=== PATIENT | female | born 1960 | race Caucasian/White ===

== ENCOUNTER 2023-07-23 01:53 | Inpatient (IN) | payer MEDICAID, OTHER, SELFPAY ==
--- NOTE | ~2023-07-23 | US_ITS ---
EXAMINATION: US ABDOMEN COMPLETE CLINICAL INFORMATION: Severe hypertriglyceridemia. Right upper quadrant pain. COMPARISON: None available. TECHNIQUE: Real-time imaging of the abdominal viscera. FINDINGS: PANCREAS: Obscured. ABDOMINAL AORTA: Obscured. INFERIOR VENA CAVA: Obscured. LIVER: The liver is normal in size. The liver contour is normal. Parenchymal echogenicity is normal. No focal hepatic lesion. There is no intrahepatic biliary duct dilatation seen. GALLBLADDER: Contracted. COMMON BILE DUCT: Normal in caliber measuring 0.3 cm in diameter. RIGHT KIDNEY: No hydronephrosis. No renal calculi or focal parenchymal lesions. The kidney measures 11.1 cm in maximum dimension. LEFT KIDNEY: No hydronephrosis. No renal calculi or focal parenchymal lesions. The kidney measures 10.7 cm in maximum dimension. Upper pole cyst measures 3.0 x 2.9 x 3.1 cm. No further imaging follow-up is needed. SPLEEN: Suboptimally seen. The spleen measures 9.9 cm in maximum dimension. FREE FLUID: None. US/US abdomen complete IMPRESSION: Limited study. No acute abnormality.
[2023-07-23 04:31] VITALS: BP 160/86; PULSE 80; RESP 17; TEMP 36.4; O2SAT 94
[2023-07-23 04:32] VITALS: BMI 25.8
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
--- NOTE | 2023-07-23 11:15 | PC.NURSE ---
Attempted to complete med rec for pt who reports she is from [place]. Pt unable to provide pharmacy information. Pt reports she takes amlodipine PO 10mg tab daily, levothyrozine PO 75 mcg daily, and lorazepam PO 1mg BID PRN. This info was confirmed with dischrge paperwork for [facility]. Pt also reports she is allergic to all antidepressants, all antipsychotics, all SSRIs, Valproic Aci and Risperidone. Pt reports they cause my finger nails to fall off . MD notified via [employer].
[2023-07-23] MEDS: Acetaminophen 325 MG TABLET 650 MG PO ×2 (13:21→21:27)
--- NOTE | 2023-07-23 14:35 | HO.PM.IMCN ---
History of Present Illness Data of Consult Service Date: 07/23/23 Primary Care Provider: Unknown Physician HPI Reason for consult: Admission H&P Pt is a 63-year-old female with a PMH significant for?HTN and hypothyroidism who is admitted to M5 psychiatry unit for delusional and disorganized behavior. Patient was apparently at [facility] and began to act manic and was sectioned. Initially presented to [facility] severely delusional of both grandiosity and persecution. Medical consult for admission H&P. ?Patient presents has manic at time of interview and examination. Continues to have delusions of grandiosity, including having been asked to attend numerous medical conferences sponsored by the [employer] in [facility] due to her medical knowledge and unique medical conditions and physiology. Patient does not speak logically or provide accurate HPI. Patient is not directable and will not cooperate with examination. Patient is mildly hypertensive at 160/86, otherwise vitals WNL. Review of Systems Review of Systems: Unable to obtain due to patient's mentation [facility] Medical History Hypothyroid Hypertension DVT (deep venous thrombosis) Renal cyst Social History Household Members: None Housing: Homeless Patient Tobacco Use Status: Current everyday Tobacco user Tobacco use type: Cigarette Smoked in Last 30 Days: Yes e-Cigarette/Vaping Use: Never Used Patient Interested in Nicotine Replacement: Yes Patient Given Instructions on How to Stop Smoking: Yes Date Education Initiated: 07/23/23 Second Hand Smoke Exposure: No Use of substances other than those prescribed or required for medical reasons: No Currently Displaying Signs/Symptoms of Drug Intoxication Withdrawal: No Any prior treatment program specific to substance use: No Have you been hit, kicked, punched, or otherwise hurt by someone within the past year? If so, by whom?: No Do you feel safe in your current relationship?: No Current Relationship Is there a partner from a previous relationship who is making you feel unsafe now?: No Are you made to feel afraid or neglected: No Yazidism Healthcare Practices: Orthodox Advance Directives: No Advance Directives Information Provided: No Do you have thoughts of harming others: None Do you have a plan to hurt others: No Plan Recently lost weight without trying: No Eating poorly because of decreased appetite: No Nutrition Risks: No Nutritional Risk Patient : No : No Poor oral hygiene: No Meds Allergies Allergy/AdvReac Type Severity Reaction Status Date / Time Unable to Assess Allergy Verified 07/23/23 04:50 Active Medications: Current Medications Acetaminophen (Acetaminophen 325 Mg Tablet) 650 mg PO Q6H PRN PRN Reason: Headache/Pain Mild Scale (1-3) Last Admin: 07/23/23 13:21 Dose: 650 mg Al Hydroxide/Mg Hydroxide (Magnesium Hydrox/Alum Hydrox 30 Ml Oral.Susp) 30 ml PO Q6H PRN PRN Reason: Heartburn/Nausea Hydroxyzine HCl (Hydroxyzine Hcl 25 Mg Tablet) 25 mg PO Q6H PRN PRN Reason: Anxiety Magnesium Hydroxide (Milk Of Magnesia 30 Ml Oral.Susp) 30 ml PO DAILY PRN PRN Reason: Constipation Nicotine Polacrilex (Nicotine Polacrilex 2 Mg Gum) 2 mg BUCCAL Q2H PRN PRN Reason: Nicotine Cravings Quetiapine Fumarate (Quetiapine Fumarate 50 Mg Tablet) 50 mg PO Q4H PRN PRN Reason: agitation Trazodone HCl (Trazodone Hcl 50 Mg Tablet) 50 mg PO BEDTIME MRX1 PRN PRN Reason: Insomnia Home Medications Medication Instructions Recorded Confirmed Last Taken Type gabapentin 07/23/23 Unknown History quetiapine 07/23/23 Unknown History Physical Exam Vital Signs and Narrative: Vital Signs: Last Vital Signs Temp 97.6 F 07/23/23 04:31 Pulse 80 07/23/23 04:31 Resp 17 07/23/23 04:31 BP 160/86 H 07/23/23 04:31 Pulse Ox 94 07/23/23 04:31 O2 Del Method Room Air 07/23/23 04:31 BMI result Body Mass Index 25.8 Unable to obtain due to patient's mentation. Patient presents as manic and incapable of redirection. Assessment and Plan (1) Medical clearance for psychiatric admission: Status: Acute Plan Pt is a 63-year-old female with a PMH significant for?HTN and hypothyroidism who is admitted to psychiatry unit for delusional and disorganized behavior. Patient was apparently at [facility] and began to act manic and was sectioned. Initially presented to [facility] severely delusional of both grandiosity and persecution. Medical consult for admission H&P. ?Patient presents has manic at time of interview and examination. Mood disorder Plan as per Psychiatry HTN Continue amlodipine once verified by Pharmacy Hypothyroidism Check TSH with reflex T4 Continue levothyroxine once verified Thank you for allowing us to participate in the care of this patient. Signing off at this time. Please re-consult if any acute complaints or issues arise.
[2023-07-23 17:15] VITALS: BP 168/93; PULSE 117; TEMP 36.2; O2SAT 97
[2023-07-23] MEDS: amLODIPine Besylate 10 MG TABLET PO (17:18)
[2023-07-23] MEDS: Levothyroxine Sodium 75 MCG TABLET PO (17:18)
[2023-07-23] MEDS: Nicotine Polacrilex 2 MG GUM BUCCAL (18:48)
[2023-07-23] MEDS: Magnesium Hydrox/Alum Hydrox 30 ML ORAL.SUSP PO (21:27)
[2023-07-23 22:30] VITALS: BP 152/90; PULSE 95; TEMP 36.2; O2SAT 98
[2023-07-24] MEDS: Nicotine Polacrilex 2 MG GUM BUCCAL ×3 (03:08→22:06)
[2023-07-24] MEDS: QUEtiapine Fumarate 50 MG TABLET PO (03:08)
[2023-07-24] MEDS: Milk of Magnesia 30 ML ORAL.SUSP PO (03:08)
[2023-07-24] MEDS: Acetaminophen 325 MG TABLET 650 MG PO ×3 (03:15→19:00)
[2023-07-24 08:19] LABS: Glucose, Whole Blood 105 mg/dL (60-115)
[2023-07-24] MEDS: Levothyroxine Sodium 75 MCG TABLET PO (08:24)
[2023-07-24] MEDS: Folic Acid 1 MG TABLET PO (08:24)
[2023-07-24] MEDS: amLODIPine Besylate 10 MG TABLET PO (08:24)
[2023-07-24 08:35] VITALS: BP 142/77; PULSE 78; RESP 16; TEMP 36.1; O2SAT 99
[2023-07-24 08:43] LABS: MANUAL DIFF FLAG NO
[2023-07-24 08:50] LABS: Basophils Absolute Auto 0.1 X10*3/uL (0.0-0.2); Basophils Percent Auto 0.9 % (0-2); Eosinophils Absolute Auto 0.2 X10*3/uL (0.0-0.4); Eosinophils Percent Auto 2.7 % (0-4); Hematocrit 38.1 % (37.0-47.0); Hemoglobin 12.6 g/dl (12.0-16.0); Imm Gran Abs Auto 0.05 X10*3/uL (0.00-0.03); Imm Gran Pct Auto 0.6 % (0.0-0.4); Lymphocytes Absolute Auto 1.5 X10*3/uL (1.2-4.9); Lymphocytes Percent Auto 18.8 % (20-40); Mean Corpuscular HGB Conc 33.1 g/dl (31.0-35.0); Mean Corpuscular Hemoglobin 30.1 pg (27.0-33.0); Mean Corpuscular Volume 90.9 fL (80.0-98.0); Mean Platelet Volume 10.1 fL (9.4-12.3); Monocytes Absolute Auto 0.7 X10*3/uL (0.1-1.2); Monocytes Percent Auto 8.9 % (2-11); Neutrophils Absolute Auto 5.3 x10*3/uL (2.0-8.3); Neutrophils Percent Auto 68.1 % (45-73); Platelet Count 292 X10*3/uL (160-400); Red Blood Count 4.19 X10*6/uL (4.20-5.50); Red Cell Distribution Width 13.5 % (11.0-16.0); White Blood Count 7.7 X10*3/uL (4.8-10.8)
[2023-07-24 09:08] LABS: Estimated Average Glucose 120 mg/dL; Hemoglobin A1c % 5.8 % (<6.0)
[2023-07-24 09:17] LABS: Cholesterol 400 mg/dL (<200); HDL Cholesterol 48 mg/dL (>40); Triglycerides 1090 mg/dL (<150)
[2023-07-24 09:32] LABS: Free T4 (Free Thyroxine) 0.86 ng/dL (0.71-1.85); Thyroid Stimulating Hormone 5.86 uIU/mL (0.32-4.0)
[2023-07-24 09:45] LABS: Folate 11.4 ng/mL (> or = 4.0); Vitamin B12 1816 pg/mL (200-900)
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
[2023-07-24 17:04] VITALS: BP 135/76; PULSE 93; RESP 20; TEMP 36.5; O2SAT 98
[2023-07-24] MEDS: clonazePAM 0.5 MG TABLET PO (18:52)
[2023-07-24] MEDS: Magnesium Hydrox/Alum Hydrox 30 ML ORAL.SUSP PO (22:06)
[2023-07-25] MEDS: Nicotine Polacrilex 2 MG GUM BUCCAL ×2 (03:44→21:27)
[2023-07-25] MEDS: Acetaminophen 325 MG TABLET 650 MG PO (03:44)
[2023-07-25] MEDS: QUEtiapine Fumarate 50 MG TABLET PO (03:44)
[2023-07-25] MEDS: Levothyroxine Sodium 75 MCG TABLET PO (06:45)
[2023-07-25 08:10] VITALS: BP 159/85; PULSE 97; RESP 18; TEMP 36.3; O2SAT 99
[2023-07-25] MEDS: amLODIPine Besylate 10 MG TABLET PO (08:17)
[2023-07-25] MEDS: Folic Acid 1 MG TABLET PO (08:17)
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
[2023-07-25] MEDS: Multivitamin TABLET 1 TAB PO (10:05)
[2023-07-25] MEDS: Cholecalciferol (Vitamin D3) 25 MCG TABLET 50 MCG PO (10:05)
[2023-07-25] MEDS: Lidocaine 4 % Patch ADH..PATCH 1 PATCH TRANSDERMA (10:06)
[2023-07-25] MEDS: Acetaminophen 325 MG TABLET 975 MG PO ×2 (10:11→21:08)
[2023-07-25] MEDS: clonazePAM 0.5 MG TABLET PO ×2 (15:20→21:05)
[2023-07-25 17:00] VITALS: BP 148/76; PULSE 98; TEMP 36.3; O2SAT 98
[2023-07-25] MEDS: Gabapentin 100 MG CAPSULE PO (21:05)
[2023-07-26] MEDS: Levothyroxine Sodium 75 MCG TABLET PO (06:19)
[2023-07-26 08:00] VITALS: BP 158/86; PULSE 82; RESP 16; TEMP 36.4; O2SAT 98
[2023-07-26] MEDS: Ascorbic Acid 250 MG TABLET PO (08:15)
[2023-07-26] MEDS: Folic Acid 1 MG TABLET PO (08:15)
[2023-07-26] MEDS: amLODIPine Besylate 10 MG TABLET PO (08:15)
[2023-07-26] MEDS: Acetaminophen 325 MG TABLET 975 MG PO ×3 (08:16→22:00)
[2023-07-26] MEDS: Cholecalciferol (Vitamin D3) 25 MCG TABLET 50 MCG PO (08:17)
[2023-07-26] MEDS: Nicotine Polacrilex Lozenge 2 MG LOZENGE BUCCAL ×2 (08:33→13:21)
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
[2023-07-26 10:06] LABS: Glucose, Whole Blood 270 mg/dL (60-115)
[2023-07-26] MEDS: clonazePAM 0.5 MG TABLET PO ×2 (15:03→21:56)
[2023-07-26] MEDS: Lidocaine 4 % Patch ADH..PATCH 1 PATCH TRANSDERMA (15:04)
[2023-07-26 16:58] LABS: Glucose, Whole Blood 189 mg/dL (60-115)
[2023-07-26] MEDS: Gabapentin 100 MG CAPSULE PO (21:56)
[2023-07-26 22:33] LABS: Glucose, Whole Blood 132 mg/dL (60-115)
[2023-07-27] MEDS: Magnesium Hydrox/Alum Hydrox 30 ML ORAL.SUSP PO ×2 (03:22→20:19)
[2023-07-27] MEDS: QUEtiapine Fumarate 50 MG TABLET PO ×2 (03:25→20:18)
[2023-07-27] MEDS: Levothyroxine Sodium 75 MCG TABLET PO (05:33)
[2023-07-27 08:15] VITALS: BP 139/78; PULSE 80; RESP 18; TEMP 36.1; O2SAT 96
[2023-07-27 08:18] LABS: Glucose, Whole Blood 118 mg/dL (60-115)
[2023-07-27] MEDS: Nicotine Polacrilex Lozenge 2 MG LOZENGE BUCCAL ×2 (08:22→20:11)
[2023-07-27] MEDS: Acetaminophen 325 MG TABLET 975 MG PO ×2 (08:22→20:16)
[2023-07-27] MEDS: Folic Acid 1 MG TABLET PO (08:23)
[2023-07-27] MEDS: Ascorbic Acid 250 MG TABLET PO (08:23)
[2023-07-27] MEDS: Cholecalciferol (Vitamin D3) 25 MCG TABLET 50 MCG PO (08:23)
[2023-07-27] MEDS: amLODIPine Besylate 10 MG TABLET PO (08:23)
[2023-07-27 08:35] LABS: Cholesterol 519 mg/dL (<200); HDL Cholesterol 47 mg/dL (>40); Triglycerides 2566 mg/dL (<150)
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
[2023-07-27 12:05] LABS: Alanine Aminotransferase 22 U/L (0-31); Alkaline Phosphatase 113 U/L (39-117); Aspartate Amino Transferase 18 U/L (5-31); Bilirubin Direct < 0.2 mg/dL (0.0-0.5); Bilirubin Total 0.2 mg/dL (0.0-1.0); Total Protein 6.3 g/dL (6.5-8.0)
--- NOTE | 2023-07-27 12:19 | PM.EVENT ---
Event Note Date of Service: 07/27/23 Event Note: 63-year-old female with schizoaffective disorder, hypothyroidism, hypertension, history DVT admitted to Psychiatry with oscar and psychosis with consult of severe hypertriglyceridemia. Triglyceride levels on 07/24 >1000, repeated today fasting and triglycerides >2500. Total cholesterol 519. LFTs wnl. 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 Has never seen endocrinology or Time Spent With Patient Time: Total time managing care of this patient today ____ minutes.
[2023-07-27 12:34] LABS: Glucose, Whole Blood 141 mg/dL (60-115)
--- NOTE | 2023-07-27 12:57 | P.PNIM_ITS ---
Subjective Subjective Date of Service: 07/27/23 Interval History: 63-year-old female with schizoaffective disorder, hypothyroidism, hypertension, history DVT admitted to Psychiatry with oscar and psychosis with consult of severe hypertriglyceridemia. Triglyceride levels on 07/24 >1000, repeated today fasting and triglycerides >2500. Total cholesterol 519. LFTs wnl. 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 Has never seen endocrinology or cardiology in the past. She states she has had a u/s of the abd/pelvis performed in the past with what sounds like a renal cyst but cannot confirm given lack of records and questionable history. Of note, she also had UA suggestive of infection at [facility]. Urine culture resulted with 10k-100k Staph aureus and 10k-100k hemolytic strep viridens. Sensitive to cefuroxine. Pt denies dysuria, states she always has hematuria . Denies urinary frequency or urgency. Denies abd pain, flank pain, n/v. However, again, unclear as to how accurate this history is as she is redirected and then quickly returns to disorganized thoughts. Review of Systems Unclear if history provided is credible Review of Systems: Yes Unobtainable due to mental status Physical Exam 2 Vital Signs: Vital Signs: Last Vital Signs Temp 96.9 F 07/27/23 08:15 Pulse 80 07/27/23 08:15 Resp 18 07/27/23 08:15 BP 139/78 07/27/23 08:15 Pulse Ox 96 07/27/23 08:15 O2 Del Method Room Air 07/27/23 08:15 BMI result Body Mass Index 25.8 Constitutional - Awake and Alert, No apparent distress Eyes - PERRLA, EOMI Cardiovascular - S1S2, RRR, No edema Respiratory - Normal lung expansion, Normal respiratory effort, No respiratory distress, CTA bilaterally Gastrointestinal - RUQ ttp, ND; +BS; No rebound or guarding Extremities - no calf tenderness bilaterally, no swelling Skin - Warm/Dry Neurological - Alert & oriented to self and time Psychological - disorganized thoughts, manic, difficult to redirect Objective Data Active Medications Acetaminophen (Acetaminophen 325 Mg Tablet) 975 mg PO Q6H PRN PRN Reason: Headache/Pain Mild Scale (1-3) Last Admin: 07/27/23 08:22 Dose: 975 mg Documented By: RITCHIE Al Hydroxide/Mg Hydroxide (Magnesium Hydrox/Alum Hydrox 30 Ml Oral.Susp) 30 ml PO Q6H PRN PRN Reason: Heartburn/Nausea Last Admin: 07/27/23 03:22 Dose: 30 ml Documented By: MARY KATE Amlodipine Besylate (Amlodipine Besylate 10 Mg Tablet) 10 mg PO DAILY [facility]; Protocol Last Admin: 07/27/23 08:23 Dose: 10 mg Documented By: RITCHIE Ascorbic Acid (Ascorbic Acid 250 Mg Tablet) 250 mg PO DAILY [facility] Last Admin: 07/27/23 08:23 Dose: 250 mg Documented By: RITCHIE Clonazepam (Clonazepam 0.5 Mg Tablet) 0.5 mg PO QID PRN PRN Reason: anxiety Last Admin: 07/26/23 21:56 Dose: 0.5 mg Documented By: JAMEL Folic Acid (Folic Acid 1 Mg Tablet) 1 mg PO DAILY [facility] Last Admin: 07/27/23 08:23 Dose: 1 mg Documented By: RITCHIE Gabapentin (Gabapentin 100 Mg Capsule) 100 mg PO BEDTIME [facility] Last Admin: 07/26/23 21:56 Dose: 100 mg Documented By: JAMEL Hydroxyzine HCl (Hydroxyzine Hcl 25 Mg Tablet) 25 mg PO Q6H PRN PRN Reason: Anxiety Levothyroxine Sodium (Levothyroxine Sodium 75 Mcg Tablet) 75 mcg PO DAILY@0600 [facility] Last Admin: 07/27/23 05:33 Dose: 75 mcg Documented By: KAIA Lidocaine (Lidocaine 4 % Patch Adh..Patch) 1 patch TRANSDERMA DAILY PRN; Protocol PRN Reason: lower back pain Last Admin: 07/26/23 15:04 Dose: 1 patch Documented By: FRANNIE Magnesium Hydroxide (Milk Of Magnesia 30 Ml Oral.Susp) 30 ml PO DAILY PRN PRN Reason: Constipation Last Admin: 07/24/23 03:08 Dose: 30 ml Documented By: KYUNG Nicotine Polacrilex (Nicotine Polacrilex 2 Mg Gum) 2 mg BUCCAL Q2H PRN PRN Reason: Nicotine Cravings Last Admin: 07/25/23 21:27 Dose: 2 mg Documented By: JAMEL Nicotine Polacrilex (Nicotine Polacrilex Lozenge 2 Mg Lozenge) 2 mg BUCCAL Q2H PRN PRN Reason: Nicotine Cravings Last Admin: 07/27/23 08:22 Dose: 2 mg Documented By: RITCHIE Quetiapine Fumarate (Quetiapine Fumarate 50 Mg Tablet) 50 mg PO Q4H PRN PRN Reason: agitation Last Admin: 07/27/23 03:25 Dose: 25 mg Documented By: MARY KATE Vitamin D (Cholecalciferol (Vitamin D3) 25 Mcg Tablet) 50 mcg PO DAILY [facility] Last Admin: 07/27/23 08:23 Dose: 50 mcg Documented By: RITCHIE Labs 07/24/23 08:34 07/27/23 08:03 Labs: Laboratory Results - last 24 hr 07/26/23 07/26/23 07/27/23 16:51 22:21 08:03 Hold Purple Top SEE NOTE POC Glucose 189 H 132 H Total Bilirubin 0.2 Direct Bilirubin < 0.2 AST 18 ALT 22 Alkaline Phosphatase 113 Total Protein 6.3 L Albumin 3.0 L Triglycerides 2566 H Cholesterol 519 H LDL Cholesterol, Calc TNP HDL Cholesterol 47 07/27/23 07/27/23 08:11 12:24 Hold Purple Top POC Glucose 118 H 141 H Total Bilirubin Direct Bilirubin AST ALT Alkaline Phosphatase Total Protein Albumin Triglycerides Cholesterol LDL Cholesterol, Calc HDL Cholesterol Assessment and Plan (1) Hypertriglyceridemia: Status: Acute Plan 63-year-old female with schizoaffective disorder, hypothyroidism, hypertension, history DVT admitted to Psychiatry with oscar and psychosis with consult of severe hypertriglyceridemia. Triglyceride levels on 07/24 >1000, repeated today fasting and triglycerides >2500. Total cholesterol 519. LFTs wnl. 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 Additional labs review: Hgb A1c 5.8, TSH 5.86 free T4 0.86, AST/ALT , Total bili 0.2. UA from [facility] 3+ protein. UC with 10k-100k staph aureus and 10k-100k hemolytic strep viridens Discussed levels with endocrinology. In pt unable to tolerate statin, can use fenofibrate and fish oil BID. Also recommended Vascepa, which is not on formulary here. Per endo, there are no meds currently that exist to treat this degree of hypertriglyceridemia. Discussed with nephrology. Lupus nephritis unlikely to cause this degree of hypertriglyceridemia Plan: Hypertriglyceridemia- -Avoid statins given history -Start fenofibrate 160mg daily -Add fish oil 1000mg BID (will need to call [facility] to see if they can deliver- not on our formulary and our outpt pharmacy does not take her insurance) -Check renal function/lytes -Check microalbumin/creat urine, urine lytes -Check abd us to evaluate biliary tree/liver, kidneys -Needs outpt follow up with endocrinology (hypertriglyceridemia) and nephrology (for lupus management) who may recommend outpt aphoresis -Try to obtain pharmacy information from [facility] to gather more information about medications -when last filled, what she is taking, when she takes them etc UTI- -asymptomatic, but given urine culture and current mental status recommend treatment -will treat with cefuroxime 250mg BID x 5 days Thank you for allowing me to participate in this consult. Signing off at this time. Please do not hesitate to call for further questions. Quality Stroke Does the patient have a stroke diagnosis?: No VTE Prior VTE?: No VTE Risk Level:: Medical - low VTE Device Contraindication: Treatment Not Indicated VTE Drug Contraindication: Treatment Not Indicated
[2023-07-27 13:53] LABS: Anion Gap 22 (12-20); Blood Urea Nitrogen 20 mg/dL (9-16); Calcium 9.4 mg/dL (8.4-10.2); Carbon Dioxide 13 mmol/L (22-29); Chloride 103 mmol/L (96-108); Creatinine Clr Calc Pharmacy 58.8; Estimated Glomerular Filt Rate > 60; Glucose Random 112 mg/dL (60-115); Potassium 4.5 mmol/L (3.3-5.1); Sodium 133 mmol/L (135-145)
[2023-07-27 13:55] LABS: TSH reflex Free T4 5.47 uIU/mL (0.32-4.0)
[2023-07-27 15:05] LABS: Free T4 (Free Thyroxine) 0.84 ng/dL (0.71-1.85)
[2023-07-27 15:26] LABS: Appearance Urine Clear; Color Urine Yellow; Glucose Urine UA Negative (Negative); Leukocyte Esterase Urine Trace (Negative); Nitrite Urine Negative (Negative); PH 6.5 (5.0-9.0); Specific Gravity - Urine 1.015 (1.005-1.025); UMIC TRIGGER UA YES; Urine Blood Trace (Negative); Urine Ketones Negative (Negative); Urine Protein 300 (3+) mg/dL (Neg-Trace)
[2023-07-27 15:30] LABS: Bacteria Urine None Seen (None Seen); Hyaline Casts Urine 0-2 /LPF (0-2); Squamous Epithelial Cell Urine 0-2 /HPF (0-2)
[2023-07-27 17:11] LABS: Glucose, Whole Blood 127 mg/dL (60-115)
[2023-07-27 18:28] LABS: Creatinine Urine 49.54 mg/dL
[2023-07-27 18:35] LABS: Microalbum/Creatinine Ratio Ur 4037.1 ug/mg cr (<30); Microalbumin Urine > 2000.0 mg/L
[2023-07-27] MEDS: clonazePAM 0.5 MG TABLET PO (20:18)
[2023-07-27 21:27] LABS: Glucose, Whole Blood 123 mg/dL (60-115)
[2023-07-27 21:50] VITALS: BP 152/76; PULSE 93; TEMP 36.5
[2023-07-28] MEDS: Levothyroxine Sodium 75 MCG TABLET PO (05:57)
[2023-07-28 06:00] VITALS: BP 141/78; PULSE 88; RESP 16; TEMP 36.4; O2SAT 99
[2023-07-28] MEDS: Lidocaine 4 % Patch ADH..PATCH 1 PATCH TRANSDERMA (08:32)
[2023-07-28] MEDS: amLODIPine Besylate 10 MG TABLET PO (08:35)
[2023-07-28] MEDS: lisinopriL 10 MG TABLET PO (08:35)
[2023-07-28] MEDS: Cholecalciferol (Vitamin D3) 25 MCG TABLET 50 MCG PO (08:35)
[2023-07-28] MEDS: Folic Acid 1 MG TABLET PO (08:35)
[2023-07-28] MEDS: Ascorbic Acid 250 MG TABLET PO (08:35)
[2023-07-28 08:52] LABS: Glucose, Whole Blood 105 mg/dL (60-115)
--- NOTE | 2023-07-28 09:42 | HO.PSYCHPN ---
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 who met and interviewed patient. He agrees that patient does not meet criteria for involuntary commitment. Will proceed with discharge planning. Plan: CV Q 15 minute checks Hospitalist VIDA recs: see above Continue amlodipine 10 mg daily Continue levothyroxine 75 mcg daily clonazepam 0.5 mg q.i.d. p.r.n. Working on med rec as pharmacy has medication bottles Will try to get collateral though this will be difficult [place] Will consider other home medications after hospitalist able to see patient Labs reviewed from sending facility UDS negative UA negative for nitrates, leukocyte esterase though increased WBC CBC, lytes, BUN creatinine, LFTs WNL me medication history; not sure about patient's adherence Folic acid 5 mg Synthroid 75 mcg Norvasc 10 mg ramipril 10 mg and 5 mg Seroquel 25 mg A p.o. prednisone 5 mg and 50 mg Azathioprine Methotrexate 50 mg/2 mL Hydrochlorothiazide 12.5 mg Patient educated on: diagnosis, medication risk/benefits and medical condition Informed Consent: understands, does not understand and further education needed Reason for continued inpatient stay Substantial Risk for: stable for discharge Time Spent With Patient Time: Total time managing care of this patient today ____ minutes.
[2023-07-28] MEDS: Nicotine Polacrilex Lozenge 2 MG LOZENGE BUCCAL ×2 (10:20→16:13)
[2023-07-28 12:31] LABS: Glucose, Whole Blood 100 mg/dL (60-115)
[2023-07-28] MEDS: clonazePAM 0.5 MG TABLET PO (13:43)
[2023-07-28] MEDS: Acetaminophen 325 MG TABLET 975 MG PO ×2 (13:43→22:16)
[2023-07-28 14:31] LABS: Potassium Urine Random 28.2 mmol/L
[2023-07-28 17:53] LABS: Glucose, Whole Blood 114 mg/dL (60-115)
[2023-07-28 18:00] VITALS: BP 136/78; PULSE 96; TEMP 36.2; O2SAT 97
[2023-07-28] MEDS: QUEtiapine Fumarate 50 MG TABLET PO (22:17)
[2023-07-28 22:59] LABS: Glucose, Whole Blood 93 mg/dL (60-115)
[2023-07-29] MEDS: Levothyroxine Sodium 75 MCG TABLET PO (06:33)
[2023-07-29 08:22] VITALS: BP 139/72; PULSE 89; RESP 16; TEMP 36.4; O2SAT 98
[2023-07-29] MEDS: Cholecalciferol (Vitamin D3) 25 MCG TABLET 50 MCG PO (08:43)
[2023-07-29] MEDS: Folic Acid 1 MG TABLET PO (08:43)
[2023-07-29] MEDS: Ascorbic Acid 250 MG TABLET PO (08:43)
[2023-07-29] MEDS: Fenofibrate 160 MG TABLET PO (08:43)
[2023-07-29] MEDS: lisinopriL 10 MG TABLET PO (08:43)
[2023-07-29] MEDS: cefuroxime axetiL 250 MG TABLET PO (08:43)
[2023-07-29] MEDS: amLODIPine Besylate 10 MG TABLET PO (08:44)
[2023-07-29] MEDS: Nicotine Polacrilex Lozenge 2 MG LOZENGE BUCCAL (10:08)
--- NOTE | 2023-07-29 10:55 | PM.PSYDC ---
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 patient has exhausted the resources available to her on the psychiatric unit and does not require inpatient level of care. She is ambivalent about staying on the unit; it is hard to say what she wants at this point, other than to talk about her conspiratorial beliefs and having a place to stay. Though she has delusional thinking, she is still largely organized in many areas. Pt is safe and there are no reports of any history of dangerousness; she denies any hx at all of SI/HI, aggression or self-harm. On the unit she can be intrusive, but has not demonstrated any unsafe behaviors. Also, pt is fully aware her chronic medical illnesses, discussing them accurately and in detail and able to make reasonable decisions regarding medication treatment for them; she has no acute medical issues. Patient has the means, organization and mental capacity to fend for herself and to procure food and custodial. Though she won't use the GPS on her cell phone (believing it is hacked), she jokes about still being able to use an 'old-fashioned' paper map for directions. She of course struggles when interacting with others due to her contentious and demanding approach however, this is a chronic thing and has not resulted in anything unsafe and this is her unmedicated baseline. Patient does not want any mood stabilizing medications or treatments for her psychiatric illness; senior medical writer cannot testify that she is a danger to herself or others or that she is unable to take care of herself in the community. Hygiene Teacher discussed case with medical doctor, Dr. Koo who met and interviewed patient. He agrees that patient does not meet criteria for involuntary commitment. Patient is appropriate for discharge. Patient?encouraged?to?return?to?her[place]home[place]country,[place] Time spent discussing smoking cessation with patient: 3 to 10 minutes Status at Discharge Functional status at discharge: independent ambulation Overall status at discharge: patient is back to baseline Time Spent with Patient Time attestation: Total time managing care of this patient today ____ minutes. Time spent: Less than 30 minutes Discharge Plan Discharge Anticipated Discharge Date/Time: 07/29/23 11:30 Patient Disposition: Home, Self-Care Discharge Diagnosis: Schizoaffective disorder, bipolar type, recurrent, severe currently manic [facility] Information [Other] - 1 Week (Patient provided with resource Booklet ) Physician,Unknown J [Primary Care Provider] - 1 Week Discharge Medications: New ascorbic acid (vitamin C) 250 mg Tablet 250 mg PO DAILY Qty: 0 0RF niacin 250 mg Tablet Extended Release 250 mg PO DAILY 30 Days Qty: 30 0RF cholecalciferol (vitamin D3) 25 mcg (1,000 unit) Tablet 50 mcg PO DAILY Qty: 0 0RF Continued amlodipine 10 mg tablet 10 mg PO DAILY gabapentin 100 mg Capsule 200 mg PO BEDTIME ramipril 10 mg Capsule 10 mg PO DAILY levothyroxine 75 mcg tablet 75 mcg PO DAILY folic acid 1 mg Tablet 5 mg PO DAILY lorazepam 1 mg tablet 1 mg PO BID PRN (Reason: anxiety) methotrexate 2 mg/mL Solution 10 mg PO Q2W quetiapine 50 mg Tablet 50 mg PO BEDTIME PRN (Reason: Insomnia) Discontinued azathioprine 50 mg Tablet 25 mg PO DAILY Discharge Orders: Discharge Order (Routine); Ordered 07/29/23 Ordered By: Ramana Khan Diet: Regular diet Activity on Discharge: As tolerated Stand Alone Forms: Patient Portal Discharge page, Community Support Care Plan Goals: Maintain mood and safe behaviors Take medications as prescribed Practice coping skills Continue with outpatient providers and reach out to them as needed Health Concerns: Mood stability and behaviors Lupus 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 Patient was interviewed prior to discharge and found to be fully oriented and without any SI or HI. Patient is not in imminent risk of harm to self or others and will safety present to the closest ER or call 911 if feeling unsafe.? Patient has been observed closely by nursing and unit staff throughout admission and has not engaged in any behaviors that suggest dangerousness to self or others. Discharge Date/Time: 07/29/23 11:59
== END 2023-07-29 11:59 | disposition home or self-care (01) | DRG 750 ==
PROVIDERS: Physician Assistant; Psychiatry & Neurology Psychiatry; Admitting Provider Psychiatry & Neurology Psychiatry; Visit Provider Psychiatry & Neurology Psychiatry
DX: F25.0 Schizoaffective disorder, bipolar type (principal); M32.0 Drug-induced systemic lupus erythematosus; M32.14 Glomerular disease in systemic lupus erythematosus; E03.9 Hypothyroidism, unspecified; E78.1 Pure hyperglyceridemia; I10 Essential (primary) hypertension; F17.210 Nicotine dependence, cigarettes, uncomplicated; T46.6X5S Adverse effect of antihyperlipidemic and antiarteriosclerotic drugs, sequela; Z59.02 Unsheltered homelessness; Z71.6 Tobacco abuse counseling; Z79.631 Long term (current) use of antimetabolite agent; Z79.890 Hormone replacement therapy; Z79.899 Other long term (current) drug therapy
CPT/HCPCS: 36415; 76700; 80048; 80061; 80076; 81001; 82043; 82436; 82570; 82607; 82746; 82947; 83036; 84133; 84300; 84439; 84443; 85025

== ENCOUNTER → 2023-07-23 01:53 | Outpatient (BNV) | payer SELFPAY | PROVIDERS: Admitting Provider Psychiatry & Neurology Psychiatry; Visit Provider Student in an Organized Health Care Education/Training Program | DX: E78.1 Pure hyperglyceridemia (principal); N39.0 Urinary tract infection, site not specified | CPT/HCPCS: 99222; 99232 ==

== ENCOUNTER → 2023-07-23 01:53 | Outpatient (BNV) | payer SELFPAY | PROVIDERS: Admitting Provider Psychiatry & Neurology Psychiatry; Visit Provider Psychiatry & Neurology Psychiatry | DX: F25.0 Schizoaffective disorder, bipolar type (principal); E03.9 Hypothyroidism, unspecified; I10 Essential (primary) hypertension; E78.1 Pure hyperglyceridemia | CPT/HCPCS: 90792; 99231; 99232; 99238 ==